=== PATIENT | female | born 1955 | race Caucasian/White ===

== ENCOUNTER 2020-01-29 22:27 | Emergency (ER) | payer OTHER, SELFPAY ==
[2020-01-29 23:02] LABS: Absolute Lymphocytes (CBC) 3.3 K/uL (0.7-4.9); Basophils % 0.8 % (0-1.3); Hematocrit 40.6 % (36.0-45.0); Lymphocytes % 43.3 % (15.3-44.8); MPV 8.1 fL (7.6-11.3); RBC Red Blood Cell Count 4.06 M/uL (3.86-4.86)
[2020-01-29 23:03] LABS: Protime INR 0.92
[2020-01-29 23:21] LABS: ALT/SGPT 21 U/L (12-78); AST/SGOT 17 U/L (15-37); Albumin 3.9 g/dL (3.4-5.0); Alkaline Phosphatase 95 U/L (45-117); BUN Blood Urea Nitrogen 20 mg/dL (7-18); Bicarbonate 25 mmol/L (21-32); Bilirubin Direct 0.1 mg/dL (0-0.2); Bilirubin Total 0.4 mg/dL (0.2-1.0); Glucose Level 102 mg/dL (74-106); Magnesium 1.9 mg/dL (1.8-2.4); NT PRO-BNP 3108 pg/mL (<125); Potassium 3.4 mmol/L (3.5-5.1); Protein, Total 7.7 g/dL (6.4-8.2); Sodium Level 139 mmol/L (136-145); Troponin (Emerg Dept Use Only) < 0.02 ng/mL (0.0-0.045)
--- NOTE | 2020-01-30 01:01 | ER ---
Nurse's Notes [facility] Name: Jeri Peña Age: 64 yrs Sex: Female : 1955 Arrival Date: 01/29/2020 Time: 22:30 Bed 4 Private MD: Diagnosis: Atrial fibrillation and flutter Presentation: 01/28 22:40 Chief complaint: Patient states: "I had 3 episodes today of just not feeling right"; lp1 Patient states feeling palpitations, hx of Afib, has not seen doctor in about 2 years; States BP at home was 156/111, HR 104. Coronavirus screen: Proceed with normal triage. Ebola Screen: No symptoms or risks identified at this time. Initial Sepsis Screen: Does the patient meet any 2 criteria? No. Patient's initial sepsis screen is negative. Does the patient have a suspected source of infection? No. Patient's initial sepsis screen is negative. Risk Assessment: Do you want to hurt yourself or someone else? Patient reports no desire to harm self or others. Onset of symptoms was January 29, 2020. 22:40 Method Of Arrival: Ambulatory lp1 22:40 Acuity: RAMONA 3 lp1 Historical: - Allergies: 22:44 No Known Allergies; lp1 - Home Meds: 22:44 metoprolol tartrate 25 mg Oral tab 1 tab once daily [Active]; lp1 - PMHx: 22:44 Mitral Valve Regurgitation; Hypertension; Atrial Fib; lp1 - PSHx: 22:44 Appendectomy; ovary removal; lp1 - Immunization history:: Adult Immunizations up to date. - Social history:: Smoking status: Patient denies any tobacco usage or history of. Screenin:44 Abuse screen: Denies threats or abuse. Denies injuries from another. Nutritional lp1 screening: No deficits noted. Tuberculosis screening: No symptoms or risk factors identified. Fall Risk None identified. Assessment: 22:40 General: Appears in no apparent distress. uncomfortable, Behavior is calm, cooperative, jb4 appropriate for age. Pain: Denies pain. Neuro: Level of Consciousness is awake, alert, obeys commands, Oriented to person, place, time, situation. Cardiovascular: Patient's skin is warm and dry. Rhythm is atrial fibrillation. Respiratory: Airway is patent Respiratory effort is even, unlabored, Respiratory pattern is regular, symmetrical. GI: No signs and/or symptoms were reported involving the gastrointestinal system. : No signs and/or symptoms were reported regarding the genitourinary system. EENT: No signs and/or symptoms were reported regarding the EENT system. Derm: Skin is intact, Skin is pink, warm \\T\\ dry. Musculoskeletal: Circulation, motion, and sensation intact. Range of motion: intact in all extremities. 23:26 Reassessment: Patient appears in no apparent distress at this time. Patient and/or jb4 family updated on plan of care and expected duration. Pain level reassessed. Patient is alert, oriented x 3, equal unlabored respirations, skin warm/dry/pink. 01/29 00:30 Reassessment: Patient appears in no apparent distress at this time. Patient and/or jb4 family updated on plan of care and expected duration. Pain level reassessed. Patient is alert, oriented x 3, equal unlabored respirations, skin warm/dry/pink. 01:30 Reassessment: Patient appears in no apparent distress at this time. Patient and/or jb4 family updated on plan of care and expected duration. Pain level reassessed. Patient is alert, oriented x 3, equal unlabored respirations, skin warm/dry/pink. Patient denies pain at this time. Vital Signs: 01/28 22:40 BP 159 / 110; Pulse 92; Resp 18; Temp 98.2(TE); Pulse Ox 100% on R/A; Weight 58.97 kg lp1 (R); Pain 0/10; 23:30 BP 124 / 93; Pulse 82; Resp 16; Pulse Ox 99% on R/A; jb4 01/29 00:30 BP 137 / 96; Pulse 78; Resp 16; Pulse Ox 98% on R/A; jb4 01:22 BP 140 / 106; Pulse 85; Resp 16; Pulse Ox 100% on R/A; jb4 ED Course: 01/28 22:30 Patient arrived in ED. cf2 22:38 Leonard Alonso RN is Primary Nurse. rv 22:42 Triage completed. lp1 22:42 Sony Jeffery MD is Attending Physician. tw4 22:42 Arm band placed on. lp1 22:43 EKG done, by ED staff, reviewed by Sony Jeffery MD. mt 22:50 Patient has correct armband on for positive identification. Bed in low position. Call jb4 light in reach. Side rails up X 1. monitoring coordinator on. Pulse ox on. NIBP on. 22:51 Inserted saline lock: 20 gauge in right antecubital area, using aseptic technique. ak Blood collected. 23:55 XRAY Chest (1 view) In Process Unspecified. EDMN 01/29 01:00 Aristides Andino MD is Referral Physician. tw4 01:32 No provider procedures requiring assistance completed. IV discontinued, intact, jb4 bleeding controlled, No redness/swelling at site. Pressure dressing applied. Administered Medications: 01:14 Drug: Lovenox 1 mg/kg Route: Sub-Q; Site: right lower abdomen; jb4 01:14 Follow up: Response: Medication administered at discharge. jb4 Outcome: 01:00 Discharge ordered by . tw4 01:32 Discharged to home ambulatory, with family. jb4 01:32 Condition: stable 01:32 Discharge instructions given to patient, Instructed on discharge instructions, follow up and referral plans. medication usage, Demonstrated understanding of instructions, follow-up care, medications, Prescriptions given X 1. 01:39 Patient left the ED. jb4 Signatures: Dispatcher [employer] EDMN Kindra Parsons RN RN lp1 Robbie Villalobos RN RN jose j4 Daniella Sales mt, Terrence, MD MD tw4 Leonard Alonso RN RN Matias Rachel 2
--- NOTE | 2020-01-30 01:01 | EDPHYS ---
Physician Documentation [facility] Name: Jeri Peña Age: 64 yrs Sex: Female : 1955 Arrival Date: 01/29/2020 Time: 22:30 Bed 4 Private MD: ED Physician Sony Jeffery HPI: 01/29 00:45 This 64 yrs old Female presents to ER via Ambulatory with complaints of High tw4 Blood Pressure. 00:45 The patient presents with a history of irregular heart beat, heart racing. Context: The tw4 symptoms occur at rest. Onset: The symptoms/episode began/occurred today. Duration: The patient or guardian reports a single episode, that is still ongoing. Modifying factors: The symptoms are aggravated by nothing. The symptoms are alleviated by nothing. Associated signs and symptoms: Pertinent positives: lightheadedness, Pertinent negatives: chest pain, cough, nausea, syncope, near-syncope, unusual stressors, vertigo, vomiting. Severity of symptoms: At their worst the symptoms were mild in the emergency department the symptoms are unchanged. The patient has not experienced similar symptoms in the past. Historical: - Allergies: 01/28 22:44 No Known Allergies; lp1 - Home Meds: 22:44 metoprolol tartrate 25 mg Oral tab 1 tab once daily [Active]; lp1 - PMHx: 22:44 Mitral Valve Regurgitation; Hypertension; Atrial Fib; lp1 - PSHx: 22:44 Appendectomy; ovary removal; lp1 - Immunization history:: Adult Immunizations up to date. - Social history:: Smoking status: Patient denies any tobacco usage or history of. ROS: 01/29 00:45 Constitutional: Negative for fever, chills, and weight loss, Eyes: Negative for injury, tw4 pain, redness, and discharge, Cardiovascular: Negative for chest pain, palpitations, and edema, Respiratory: Negative for shortness of breath, cough, wheezing, and pleuritic chest pain, Abdomen/GI: Negative for abdominal pain, nausea, vomiting, diarrhea, and constipation, Back: Negative for injury and pain, MS/Extremity: Negative for injury and deformity, Skin: Negative for injury, rash, and discoloration. Exam: 00:45 Constitutional: This is a well developed, well nourished patient who is awake, alert, tw4 and in no acute distress. Head/Face: Normocephalic, atraumatic. Chest/axilla: Normal chest wall appearance and motion. Nontender with no deformity. No lesions are appreciated. 00:45 Respiratory: Lungs have equal breath sounds bilaterally, clear to auscultation and percussion. No rales, rhonchi or wheezes noted. No increased work of breathing, no retractions or nasal flaring. Abdomen/GI: Soft, non-tender, with normal bowel sounds. No distension or tympany. No guarding or rebound. No evidence of tenderness throughout. 00:45 Cardiovascular: Rate: normal, Rhythm: irregularly irregular, Pulses: no pulse deficits are appreciated. Vital Signs: 01/28 22:40 BP 159 / 110; Pulse 92; Resp 18; Temp 98.2(TE); Pulse Ox 100% on R/A; Weight 58.97 kg lp1 (R); Pain 0/10; 23:30 BP 124 / 93; Pulse 82; Resp 16; Pulse Ox 99% on R/A; jb4 01/29 00:30 BP 137 / 96; Pulse 78; Resp 16; Pulse Ox 98% on R/A; jb4 01:22 BP 140 / 106; Pulse 85; Resp 16; Pulse Ox 100% on R/A; jb4 MDM: 01/28 22:42 Patient medically screened. tw4 01/29 00:45 Differential diagnosis: arrythmia. Data reviewed: vital signs, nurses notes. Data tw4 reviewed: lab test result(s), cardiac enzymes, CBC, electrolytes, EKG, radiologic studies, plain films. Data interpreted: Pulse oximetry: Interpretation: normal. Test interpretation: by ED physician or midlevel provider: ECG. Counseling: I had a detailed discussion with the patient and/or guardian regarding: the historical points, exam findings, and any diagnostic results supporting the discharge/admit diagnosis, lab results, radiology results. Special discussion: Based on the patient's history, exam, and Dx evaluation, there is no indication for emergent intervention or inpatient Tx. It is understood by the patient/guardian that if the Sx's persist or worsen they need to return immediately for re-evaluation. I discussed with the patient/guardian in detail that at this point there is no indication for admission to the hospital. It is understood, however, that if the symptoms persist or worsen the patient needs to return immediately for re-evaluation. 01/28 22:43 Order name: Basic Metabolic Panel; Complete Time: 23:26 01/28 23:26 Interpretation: Normal except: K 3.4; BUN 20; GFR 60. 01/28 22:43 Order name: CBC with Diff; Complete Time: 23:26 01/28 23:27 Interpretation: Normal except: MCV 100.0. 01/28 22:43 Order name: LFT's; Complete Time: 23:26 01/28 23:27 Interpretation: Normal except: GLOB 3.8; A/G 1.0. 01/28 22:43 Order name: Magnesium; Complete Time: 23:26 01/28 23:27 Interpretation: Within normal limits: MG 1.9. 01/28 22:43 Order name: NT PRO-BNP; Complete Time: 23:26 01/28 23:27 Interpretation: Normal except: NT PRO-BNP 3108. 01/28 22:43 Order name: PT-INR; Complete Time: 23:26 01/28 23:27 Interpretation: Within normal limits: PT 10.9. 01/28 22:43 Order name: Troponin (emerg Dept Use Only); Complete Time: 23:26 01/28 23:27 Interpretation: Within normal limits: TROPED < 0.02. 01/28 22:43 Order name: XRAY Chest (1 view) 01/28 22:43 Order name: EKG; Complete Time: 22:44 01/28 22:43 Order name: Cardiac monitoring; Complete Time: 22:51 01/28 22:43 Order name: EKG - Nurse/Tech; Complete Time: 22:45 01/28 22:43 Order name: IV Saline Lock; Complete Time: 22:51 01/28 22:43 Order name: Labs collected and sent; Complete Time: 22:51 01/28 22:43 Order name: O2 Per Protocol; Complete Time: 22:51 01/28 22:43 Order name: O2 Sat Monitoring; Complete Time: 22:51 4 EC:52 Rate is 84 beats/min. Rhythm is regular. QRS [place] is Normal. NC interval is normal. QRS tw4 interval is normal. QT interval is normal. No Q waves. T waves are Normal. T waves are Flattened in lead V6. No ST changes noted. Clinical impression: Atrial Fibrillation. Interpreted by me. Reviewed by me. Administered Medications: 01:14 Drug: Lovenox 1 mg/kg Route: Sub-Q; Site: right lower abdomen; jb4 01:14 Follow up: Response: Medication administered at discharge. jb4 Disposition: 01/30/20 01:00 Discharged to Home. Impression: Atrial fibrillation and flutter. - Condition is Stable. - Discharge Instructions: Atrial Fibrillation, Palpitations, Atrial Flutter. - Prescriptions for Xarelto 10 mg Oral Tablet - take 1 tablet by ORAL route once daily; 30 tablet. - Medication Reconciliation Form, Thank You Letter, Antibiotic Education, Prescription Opioid Use form. - Follow up: Private Physician; When: Upon discharge from the Emergency Department; Reason: Recheck today's complaints, Continuance of care, Re-evaluation by your physician. Follow up: Aristides Andino MD; When: Upon discharge from the Emergency Department; Reason: Recheck today's complaints, Continuance of care, Re-evaluation by your physician. - Problem is new. - Symptoms have improved. Signatures: Dispatcher [employer] EDMS Kindra Parsons RN RN lp1 Robbie Villalobos RN RN jb4 Sony Jeffery MD MD tw4 Corrections: (The following items were deleted from the chart) 01:39 01:00 01/30/2020 01:00 Discharged to Home. Impression: Atrial fibrillation and flutter. jb4 Condition is Stable. Forms are Medication Reconciliation Form, Thank You Letter, Antibiotic Education, Prescription Opioid Use. Follow up: Private Physician; When: Upon discharge from the Emergency Department; Reason: Recheck today's complaints, Continuance of care, Re-evaluation by your physician. Follow up: Aristides Andino; When: Upon discharge from the Emergency Department; Reason: Recheck today's complaints, Continuance of care, Re-evaluation by your physician. Problem is new. Symptoms have improved. tw4
[2020-01-30] MEDS ORDERED: ENOXAPARIN 60 MG/0.6 ML SQ ONE (01:10)
[2020-01-30 01:48] VITALS: TEMP 98.2
[2020-01-30 01:52] VITALS: BP 140/106; O2SAT 100
--- NOTE | 2020-01-30 08:19 | RAD REPORT ---
EXAM DESCRIPTION: RAD - Chest Single View - 01/29/2020 11:54 pm CLINICAL HISTORY: ..Palpitations, hypertension, history of mitral valve regurgitation COMPARISON: Portable October 2016 TECHNIQUE: AP portable chest image was obtained 01/29/2020 11:54 pm . FINDINGS: Lungs are clear. Heart is borderline to slightly enlarged. No vascular engorgement. No waqar surable pleural effusion and no pneumothorax. No acute bony abnormality seen. No acute aortic finding s suspected. IMPRESSION: Borderline to mild cardiomegaly. No acute lung parenchymal process.
--- NOTE | 2020-01-31 06:28 | EKG ---
Test Date: 2020-01-29 Test Time: 22:39:34 Reconstructive Surgeon: ABENA MEASUREMENT RESULTS: Intervals: Rate: 84 [place]: QRSD: 96 QT: 356 QTc: 420 [place]: P: [place]: QRS: 9 T: 1 INTERPRETIVE STATEMENTS: Atrial fibrillation with premature ventricular or aberrantly conducted complexes Nonspecific ST abnormality, probably digitalis effect Abnormal ECG Compared to ECG 11/08/2016 08:14:36 Ventricular premature complex(es) now present ST (T wave) deviation now present Sinus rhythm no longer present First degree AV block no longer present Electronically Signed On 01-31-20 06:24:41 CDT by Leonel Zhang
--- NOTE | 2020-01-31 06:28 | EKG ---
Test Date: 2020-01-30 Test Time: 01:09:50 Rn Transplant: ABENA MEASUREMENT RESULTS: Intervals: Rate: 70 CT: QRSD: 92 QT: 400 QTc: 432 [place]: P: CT: QRS: 2 T: 8 INTERPRETIVE STATEMENTS: Atrial fibrillation Abnormal ECG Compared to ECG 01/29/2020 22:39:34 Ventricular premature complex(es) no longer present ST (T wave) deviation no longer present Electronically Signed On 01-31-20 06:24:40 CDT by Leonel Zhang
== END 2020-01-30 01:39 | disposition home or self-care (01) ==
LOC: ER 22:27
DX: I48.91 Unspecified atrial fibrillation (principal); I48.92 Unspecified atrial flutter; I10 Essential (primary) hypertension
CPT/HCPCS: 36415; 71045; 80048; 80076; 83735; 83880; 84484; 85025; 85610; 93005; 96372; 99285; J1650